=== PATIENT | female | born 2005 | race Caucasian/White ===

== ENCOUNTER → 2024-02-19 | Outpatient (CLI) | payer MEDICAID ==
[2024-02-19 13:38] LABS: Basophils # (A) 0.03 X 10*3/uL (0.00-0.10); Basophils % (A) 0.5 %; Eosinophils # (A) 0.18 X 10*3/uL (0.04-0.35); Eosinophils % (A) 2.8 %; HCT 41.4 % (37.2-46.3); HGB 13.8 g/dL (12.0-15.0); Lymphocytes # (A) 2.33 X 10*3/uL (0.90-5.00); Lymphocytes % (A) 36.2 %; MCHC 33.3 g/dL (32.0-37.0); Mean Platelet Volume 9.5 FL (9.5-12.2); Monocytes # (A) 0.33 X 10*3/uL (0.20-1.00); Monocytes % (A) 5.1 %; NRBC Per 100 WBC 0 X 10*3/uL (0.00-0.01); Neutrophils # (A) 3.55 X 10*3/uL (1.80-7.70); Neutrophils % (A) 55.1 %; Platelet Count 248 X 10*3/uL (140-440); RBC 4.93 X 10*6/uL (4.10-5.20); RDW 11.8 % (11.5-14.5); WBC 6.44 X 10*3/uL (4.50-10.00)
[2024-02-19 14:02] LABS: ALT 12 U/L (8-44); AST 13 U/L (13-35); Albumin 4.7 g/dL (3.8-4.9); Albumin/Globulin Ratio 2.04 Ratio (1.60-3.17); Alkaline Phosphatase 42 U/L (41-126); BUN/Creat Ratio 12.38 Ratio (12.00-20.00); Blood Urea Nitrogen 9.9 mg/dL (9.0-27.0); Calcium 9.7 mg/dL (8.7-10.3); Carbon Dioxide 20.8 mmol/L (21.6-31.8); Chloride 106 mmol/L (96-109); Chol/HDL Ratio 4.01 Ratio; Globulin 2.3 g/dL (1.6-3.3); Glucose 95 mg/dL (70-110); LDL Cholesterol,Calculated 100.2 mg/dL (0.0-131.0); Potassium 3.8 mmol/L (3.5-5.5); Sodium 140 mmol/L (135-145); Total Bilirubin 0.7 mg/dL (0.3-1.2); VLDL Calculation 16.94 mg/dL (5.00-40.00)
== END | disposition home or self-care (01) ==
LOC: LABWHC1 09:55
PROVIDERS: ATTEND Internal Medicine
DX: R53.83 Other fatigue (principal); Z86.39 Personal history of other endocrine, nutritional and metabolic disease
CPT/HCPCS: 36415; 80053; 80061; 84443; 85025

== ENCOUNTER → 2024-10-25 | Outpatient (CLI) | payer MEDICAID ==
--- NOTE | 2024-10-25 08:17 | XR ---
EXAMINATION TYPE: XR foot complete LT DATE OF EXAM: 10/25/2024 12:41 AM COMPARISON: None CLINICAL INDICATION: Female, 19 years old with history of DROPPED BOWLING BALL ON ENTIRE LT 1ST DIGIT ; PHH, pain TECHNIQUE: XR foot complete LT examined in the AP, oblique, and lateral projections. FINDINGS: No evidence of any acute osseous pathology. IMPRESSION: No evidence of acute fracture. [facility], , 10/25/2024 8:15 AM
== END | disposition home or self-care (01) ==
LOC: RADXRMAIN 00:27
PROVIDERS: ATTEND Physician Assistant
DX: S90.935A Unspecified superficial injury of left lesser toe(s), initial encounter (principal); Y93.54 Activity, bowling

== ENCOUNTER → 2025-01-24 | Outpatient (CLI) | payer MEDICAID ==
[2025-01-24 15:11] LABS: Appearance,Urine Clear (Clear); Bilirubin,Urine Negative (Negative); Blood,Urine Negative (Negative); Color,Urine Light Yellow; Glucose,Urine (UA) Negative (Negative); Ketones,Urine Negative (Negative); Leukocyte Esterase,Urine Negative (Negative); Nitrite,Urine Negative (Negative); Protein,Urine Negative (Negative); Specific Gravity,Urine 1.011 (1.001-1.035); Urobilinogen,Urine <2.0 mg/dL (<2.0)
[2025-01-24 15:16] LABS: HCG,Qualitative Serum Not Detected
[2025-01-24 20:40] LABS: Amylase 45 U/L (23-121); Chol/HDL Ratio 4.65 Ratio; Lipase 33 U/L (14-63)
[2025-01-24 20:41] LABS: ALT 17 U/L (8-44); AST 19 U/L (13-35); Albumin 4.8 g/dL (3.8-4.9); Albumin/Globulin Ratio 1.78 Ratio (1.60-3.17); Alkaline Phosphatase 46 U/L (41-126); Blood Urea Nitrogen 12.8 mg/dL (9.0-27.0); Calcium 9.7 mg/dL (8.7-10.3); Carbon Dioxide 21.8 mmol/L (21.6-31.8); Chloride 105 mmol/L (96-109); Globulin 2.7 g/dL (1.6-3.3); Glucose 95 mg/dL (70-110); LDL Cholesterol,Calculated 125.2 mg/dL (0.0-131.0); Potassium 3.9 mmol/L (3.5-5.5); Sodium 142 mmol/L (135-145); Total Bilirubin 0.7 mg/dL (0.3-1.2); Total Protein 7.5 g/dL (6.2-8.2)
[2025-01-24 21:31] LABS: Basophils # (A) 0.03 X 10*3/uL (0.00-0.10); Basophils % (A) 0.5 %; Eosinophils # (A) 0.24 X 10*3/uL (0.04-0.35); Eosinophils % (A) 4.2 %; HCT 42.2 % (37.2-46.3); HGB 14.3 g/dL (12.0-15.0); Lymphocytes # (A) 1.75 X 10*3/uL (0.90-5.00); Lymphocytes % (A) 30.3 %; MCH 27.8 pg (27.0-32.0); MCHC 33.9 g/dL (32.0-37.0); MCV 81.9 FL (80.0-97.0); Mean Platelet Volume 9.8 FL (9.5-12.2); Monocytes # (A) 0.41 X 10*3/uL (0.20-1.00); Monocytes % (A) 7.1 %; NRBC Per 100 WBC 0 X 10*3/uL (0.00-0.01); Neutrophils # (A) 3.34 X 10*3/uL (1.80-7.70); Neutrophils % (A) 57.7 %; Platelet Count 238 X 10*3/uL (140-440); RBC 5.15 X 10*6/uL (4.10-5.20); RDW 11.7 % (11.5-14.5); WBC 5.78 X 10*3/uL (4.50-10.00)
== END | disposition home or self-care (01) ==
LOC: LABMAIN 14:19
PROVIDERS: ATTEND Internal Medicine
DX: Z00.00 Encounter for general adult medical examination without abnormal findings (principal); R10.11 Right upper quadrant pain
CPT/HCPCS: 80053; 80061; 81003; 82150; 83690; 84443; 84703; 85025

== ENCOUNTER → 2025-01-24 | Outpatient (CLI) | payer MEDICAID ==
--- NOTE | 2025-01-24 22:58 | US ---
EXAMINATION TYPE: US abdomen complete DATE OF EXAM: 01/24/2025 COMPARISON: NONE CLINICAL INDICATION: Female, 19 years old with history of R10.11 RIGHT UPPER QUADRANT PAIN; RUQ pain TECHNIQUE: Grayscale and color Doppler imaging of the abdomen was performed. FINDINGS: EXAM MEASUREMENTS: Liver Length: 16.9 cm Gallbladder Wall: 0.1 cm CBD: 0.3 cm, color Doppler imaging was utilized to isolate the common bile duct for measurement. Spleen: 12.2 cm Right Kidney: 10.1 x 3.8 x 4.4 cm Left Kidney: 12.8 x 4.4 x 4.6 cm Pancreas: wnl Liver: wnl, no dilated ducts, masses or cysts. Gallbladder: No stones or wall thickening Evidence for sonographic Diaz's sign: neg CBD: wnl Spleen: wnl Right Kidney: wnl, No hydronephrosis, calculi or masses seen Left Kidney: wnl, No hydronephrosis, calculi or masses seen Upper IVC: wnl Abd Aorta: No AAA visualized at time of scan The liver is homogenous. The intrahepatic portion of the IVC and proximal abdominal aorta are within normal limits. There is no evidence of cholelithiasis. Common bile duct is unremarkable. The visu alized portions of the pancreas are homogenous. The spleen is unremarkable. Kidneys are symmetric a nd free of hydronephrosis. No renal lesions are seen. IMPRESSION: No evidence for acute process. [facility], , 01/24/2025 10:56 PM
== END | disposition home or self-care (01) ==
LOC: RADUSWWP 15:01
PROVIDERS: ATTEND Internal Medicine
DX: R10.11 Right upper quadrant pain (principal)
CPT/HCPCS: 76700